=== PATIENT | male | born 1955 | race Caucasian/White ===

== ENCOUNTER 2019-08-06 01:06 | Emergency (ER) | payer OTHER ==
--- NOTE | 2019-08-06 01:14 | PDOC ---
History of Present Illness - General Chief Complaint: Pain, Acute Stated Complaint: KIDNEY STONE Time Seen by Provider: 08/06/19 01:11 History Source: Patient Exam Limitations: No Limitations - History of Present Illness Initial Comments: 08/06/19 01:17 This is a 64-year-old male who comes in complaining of right flank pain. Patient has a long history of renal colic in the past. Patient said pain is similar to renal colic in the past. Patient denies any fever, chills, nausea, vomiting or diarrhea. Patient has history significant for hypertension high cholesterol kidney stones in the past. Allergies: as per nursing notes Past Medical History: none Social history: Lives with family. No smoking. No alcohol. No illicit drugs. Surgical history: None General: No fevers or chills, no weakness, no weight loss HEENT: No change in vision. No sore throat,. No ear pain CardioVascular: no chest discomfort. No shortness of breath Respiratory:No cough, or wheezing. Gastrointestinal: no nausea, vomiting, diarrhea or constipation, No rectal bleeding Genitourinary: No dysuria, hematuria, or frequency Musculoskeletal: No joint or muscle pain or swelling Neurologic: No headache, vertigo, dizziness or loss of consciousness Psychiatric: nor depression Skin: No rashes or easy bruising Endocrine: no increased thirst or abnormal weight change Allergic: no skin or latex allergy All other systems reviewed and normal Exam: General: Well-nourished well-developed individual, no acute distress HEENT: Throat: Normal, tonsils normal, no erythema or exudate Neck: Supple, no meningeal signs, no lymphadenopathy Eyes::Pupils equal reactive and round, extraocular motion intact Chest: Nontender to palpation Cardiac: S1-S2 normal, regular rate and rhythm, no murmurs rubs or gallops Respiratory: Lungs clear to auscultation bilateral Abdomen: Soft, nondistended, normal bowel sounds, there is some tenderness on palpation over the right flank and right CVA area Extremities: Warm, dry, no cyanosis, clubbing, or edema Skin: No rashes Neuro: Alert and oriented x3, CN II - XII intact, nonfocal exam with normal strength, normal sensation, normal reflexes, normal gait, Psych: Normal mood and affect Assessment and plan: This is a 64-year-old male with right flank pain consistent with renal colic. Patient has history of kidney stones in the past. Patient given IV fluids and work-up initiated including CBC, comp, UA, urine culture and CAT scan. 08/06/19 03:05 CAT scan showed a 5 mm and a 3 mm stone 5 mm was at the left UVJ with moderate amount of hydronephrosis. Patient's symptoms have resolved he feels much better and will be discharged as he does not want to be admitted. Past History - Past Medical History Allergies/Adverse Reactions: Allergies Allergy/AdvReac Type Severity Reaction Status Date / Time No Known Allergies Allergy Verified 02/06/16 19:04 Home Medications: Ambulatory Orders Dimethyl Fumarate [Tecfidera] 240 mg PO BID 02/06/16 Hydrocodone/Acetaminophen [Vicodin 5-300 mg Tablet] 1 each PO TID PRN #10 tablet MDD 4 02/06/16 Ibuprofen 800 mg PO TID PRN #30 tablet MDD 3 02/06/16 Lisinopril 10 mg PO DAILY 02/06/16 Modafinil [Provigil] 200 mg PO DAILY 02/06/16 Sertraline HCl [Zoloft] 100 mg PO DAILY 02/06/16 Hydrocodone/Acetaminophen [Hydrocodon-Acetaminophn 10-325] 1 each PO Q4H PRN # 20 tablet MDD 8 08/06/19 Lisdexamfetamine Dimesylate [Vyvanse] 30 mg PO DAILY 08/06/19 Ondansetron [Zofran *Odt*] 8 mg SL TID #12 od.tablet 08/06/19 HTN: Yes - Immunization History Immunization Up to Date: No - Psycho Social/Smoking Cessation Hx Smoking History: Never smoked Have you smoked in the past 12 months: No Hx Alcohol Use: No Drug/Substance Use Hx: No Substance Use Type: None ED Treatment Course - LABORATORY CBC & Chemistry Diagram: 08/06/19 01:15 08/06/19 01:15 Discharge - Discharge Information Problems reviewed: Yes Clinical Impression/Diagnosis: Renal calculus or stone Condition: Good Disposition: HOME - Admission No - Additional Discharge Information Prescriptions: Hydrocodone/Acetaminophen [Hydrocodon-Acetaminophn 10-325] 1 each PO Q4H PRN # 20 tablet MDD 8 PRN Reason: Pain Ondansetron [Zofran *Odt*] 8 mg SL TID #12 od.tablet - Follow up/Referral Referrals: Juan Nicole [Primary Care Provider] - - Patient Discharge Instructions Additional Instructions: Take the hydrocodone 1 tablet as often as every 4-6 hours as needed. Take Zofran 1 tablet 3 times a day as needed for nausea. Stay well-hydrated. Call your urologist in the morning. Return to the emergency department immediately with ANY new, persistent or worsening symptoms. Continue any medications as previously prescribed by your physician. You should follow up with your primary doctor as soon as possible regarding today's emergency department visit. . Please make sure your doctor reviews the results of your emergency evaluation. Thank you for coming to the Emergency Department today for your care. It was a pleasure to see you today. Please note that your evaluation is INCOMPLETE until you follow-up with your doctor. - Post Discharge Activity
[2019-08-06] MEDS ORDERED: ONDANSETRON 4 MG/2 ML VIAL IVPB ONE (01:16)
[2019-08-06] MEDS ORDERED: SODIUM CHLORIDE 1,000 ML IV ONE (01:16)
[2019-08-06] MEDS ORDERED: KETOROLAC TROMETHAMINE 30 MG/1 ML VIAL IVPUSH ONE (01:16)
[2019-08-06] MEDS ORDERED: morphine CARPU-JECT 4 MG/1 ML DISP.SYRIN IVPUSH ONE (01:16)
[2019-08-06] MEDS ORDERED: KETOROLAC TROMETHAMINE 30 MG/1 ML VIAL ONE (01:24)
[2019-08-06] MEDS ORDERED: ONDANSETRON 4 MG/2 ML VIAL ONE (01:24)
[2019-08-06] MEDS ORDERED: morphine SULFATE 4 MG/ML VIAL ONE (01:25)
[2019-08-06 01:39] VITALS: TEMP 98.3; BMI 26.4
[2019-08-06 01:49] LABS: HEMATOCRIT 47.4 % (35.4-49); MCHC 32.4 g/dl (32.0-35.9)
[2019-08-06 01:55] VITALS: BP 166/99; PULSE 66
[2019-08-06 01:58] LABS: BASO % 1.1 % (0-2.0); EOS % 1.1 % (0-4.5); HEMOGLOBIN 15.4 GM/dL (11.7-16.9); MCH 28.4 pg (25.7-33.7); MEAN CELL VOLUME 87.7 fl (80-96); MEAN PLT VOLUME 9.5 fl (7.5-11.1); MONO % 8.7 % (3.8-10.2); NEUT % 64.1 % (42.8-82.8); PLATELET COUNT 292 K/MM3 (134-434); RBC 5.41 M/mm3 (4.00-5.60); RDW 16.3 % (11.9-15.9); WHITE BLOOD COUNT 14.7 K/mm3 (4.0-10.0)
[2019-08-06 02:14] LABS: ALBUMIN 4.2 g/dl (3.4-5.0); BILIRUBIN,TOTAL 0.2 mg/dL (0.2-1); BLOOD UREA NITROGEN 35.6 mg/dL (7-18); CALCIUM 9.2 mg/dL (8.5-10.1); CREATININE 1.8 mg/dL (0.55-1.3); POTASSIUM 5.3 mmol/L (3.5-5.1); TOT PROT 7.1 g/dl (6.4-8.2)
[2019-08-06 02:37] LABS: EPI CELLS 0.6 /HPF (0-5/HPF); HYALINE CASTS 2 /lpf (0-8); URINE APPEARANCE CLEAR; URINE BACTERIA 1.5 /hpf (NEGATIVE); URINE BILIRUBIN NEGATIVE (NEGATIVE); URINE COLOR YELLOW; URINE GLUCOSE (UA) NEGATIVE (NEGATIVE); URINE KETONE NEGATIVE (NEGATIVE); URINE LEUK ESTERASE NEGATIVE (NEGATIVE); URINE NITRITE NEGATIVE (NEGATIVE); URINE PROTEIN TRACE (NEGATIVE); URINE RBC 3 /hpf (0-4); URINE UROBILINOGEN 0.2 mg/dL (0.2-1.0); URINE WBC 3 /hpf (0-5)
[2019-08-06 03:56] LABS: PLATELET ESTIMATE ADEQUATE
== END 2019-08-06 03:12 | disposition home or self-care (01) ==
LOC: FER 01:06
PROC: 3E0333Z Introduction of Anti-inflammatory into Peripheral Vein, Percutaneous Approach (ICD-10-PCS; principal; 2019-08-06)
PROC: 3E033NZ Introduction of Analgesics, Hypnotics, Sedatives into Peripheral Vein, Percutaneous Approach (ICD-10-PCS; 2019-08-06)
PROC: 3E0337Z Introduction of Electrolytic and Water Balance Substance into Peripheral Vein, Percutaneous Approach (ICD-10-PCS; 2019-08-06)
PROC: 3E033GC Introduction of Other Therapeutic Substance into Peripheral Vein, Percutaneous Approach (ICD-10-PCS; 2019-08-06)
DX: N20.0 Calculus of kidney (principal); Z87.442 Personal history of urinary calculi
CPT/HCPCS: 36415; 74176-TC; 80053; 81003; 85025; 87086; 99283-25; J7030